=== PATIENT | female | born 1950 | race Caucasian/White ===

== ENCOUNTER 2017-02-04 11:05 | Day surgery (SDC) | payer OTHER ==
[2017-02-04] VITALS (8 sets, daily range): BP systolic 116–153; BP diastolic 65–94; PULSE 53–77; RESP 9–21; O2SAT 98–100
[~2017-02-04] VITALS: Ht 152.4 cm; Wt 58.8 kg
[~2017-02-04 11:05] MED LIST: CHOL200025 PO; Lactated Ringer's 1,000 ML IV SCH; calcium
[2017-02-04] MEDS ORDERED: Lidocaine PF 1% 30 mL Inj ONE (11:06)
[2017-02-04] MEDS ORDERED: Ondansetron 2 mg/mL 2 mL Inj ONE (11:06)
[2017-02-04] MEDS ORDERED: Propofol 10,000 mCg/mL 20 mL Inj ONE (11:06)
[2017-02-04] MEDS ORDERED: fentaNYL-PF 50 mCg/mL 2 mL Inj ONE (11:06)
[2017-02-04] MEDS ORDERED: Dexamethasone 4 mg/mL Inj ONE (11:06)
--- NOTE | 2017-02-04 11:25 | PCM.HPANE ---
Patient Data Date of Service: Feb 04, 2017 Surgeon Admitting Provider: Attending Provider:Dominick Mirza MD Primary Care Physician:Niurka Burger PA-C Other Provider:Funmi Hoskins Anesthesia Reason for Visit History Of Rectal Cancer, Right Arm Cyst Ht/WT & BMI Height (Feet): 4 Height (Inches): 11 Weight (Kilograms): 58.96 Body Mass Index 26.00 Allergies Coded Allergies: No Known Allergies (Unverified , 05/12/16) Past Anesthesia History Anesthesia History: Denies:: Abnormal Airway, Anesthesia Reactions, Difficult Intubation, Fam Anesthesia Reaction, Fam Malignant Hypertherm, Malignant Hyperthermia Diabetes History Hx Diabetes?: No MRSA MRSA: No Medications Hypertension Medication: No Home Meds Incl Beta Bhavya: No Reported Medications [calcium] No Conflict [id number] Mg DAILY 02/03/17 Cholecalciferol (Vitamin D3) (Vitamin D3)2,000 Unit Tablet2,000 Unit PO DAILY 02/03/17 Discontinued Reported Medications Cholecalciferol (Vitamin D3) (Vitamin D3)2,000 Unit Tablet2,000 Unit PO DAILY 07/20/16 [Calcium] No Conflict [id number] Mg PO DAILY 07/20/16 History History of ENT Problems?: Yes HEENT History: Positive for:: Cataracts (starting- not surgically treated) Denies:: Abnormal Airway Difficult Intubation Dysphagia Hearing Problem Sinus Problem TMJ Hx of Heart Problems?: No Cardiovascular History: Denies:: AICD Abdominal Aortic Aneurism Atrial Fibrillation Cardiac Surgery Chest Pain Congestive Heart Failure Edema Heart Murmur Hypertension Irregular Heartbeat Pacemaker Rheumatic Fever Thrombophlebitis Hx of Respiratory Problem?: No Respiratory History: Denies:: Asthma COPD Emphysema Oxygen Administration Pneumonia Tuberculosis Use of C-PAP Machine Hx Neurologic Problems?: Yes Neurological History: Denies:: Alzheimer's Disease CVA Dementia Dizziness Headaches Multiple Sclerosis Parkinson's Disease Seizures Hx of GI Problems?: Yes Gastrointestinal History: Positive for:: Rectal Bleeding (rectal mass with chemoradiation hx, biopsy current admission plan) Denies:: Cirrhosis Diverticulitis Gastroesphageal Reflux Gastrointestinal Bleeding Heartburn Hepatitis Hiatal Hernia Hx of Problems?: No Genitourinary History: Positive for:: Urinary Tract Infection (remote hx of bladder infections) Denies:: HX of Hemodialysis Kidney Stones Female Hx: Denies:: Currently (hx of tubal ligation) Endometriosis Pelvic Inflammatory Problems with Breasts? Skin History: Positive for:: History Skin Disorders? (lesion right deltoid, current admission plan) Denies:: Pressure Ulcers Hx Musculoskeletal Problems?: Yes Musculoskeletal History: Positive for:: Back Injury (low back pain) Denies:: Degenerative Joint Joint Replacement Musculoskeletal Trauma Systemic Lupus Hx of Psycho/Social Problems?: Yes Psycho Social History: Positive for:: Anxiety Denies:: Bipolar Disorder Hx Depression Hx Surgeries?: Yes (tubal ligation, nasal ) Hx Any Other Health Problems?: Yes Other History: Positive for:: Cancer (Rectal Cancer) Hospitalization Denies:: Thyroid Disease History Blood Transfusions: Denies:: Blood Transfusions Hx Diabetes: No Hx Alcohol Use: NoHx Substance Use: No Smoking Status: Current Every Day Smoker Heavy Tobacco Smoker Have You Smoked inLast 12 mo: Yes Stop/Bang S-Snoring: Do You Snore Loudly: No T-Tired: feel tired, fatigued: No O-Obsered: Observed not breath: No P-Blood Pressure: treated: No B- Body Mass Index > 35 kg/m2: No A- Age over 50: Yes N- Neck Large Circumference: No G- Gender Male: No DARYL Total Score: 1 DARYL Risk Assessment: Low Risk, <3 Yes Risk Assessment Category Category 1A: Patient has history of documented sleep apnea, and HAS NOT received any narcotic, sedative or anesthesia administration during this stay. Category 1B: Patient has history of documented sleep apnea, and HAS received any narcotic , sedative or anesthesia administration during this stay Category 2: Patient has SUSPECTED Obstructive Sleep Apnea, and HAS received any narcotic , sedative or anesthesia administration during this stay. Category 3: Patient has SUSPECTED Obstructive Sleep Apnea and HAS NOT received narcotic, sedative or anesthesia administration during this stay. Category 4: Outpatient in Procedural Areas with known sleep apnea or who screen positive for High Risk via the STOP/BANG questionnaire. Exam Exam General Appearance: Alert, Oriented X3, Cooperative, No Acute Distress HEENT/AIRWAY: MP 2, Neck Movement (limited), Mouth Opening (3 fb), Other (tmd 3 fb) Lungs: Clear to Auscultation, Normal Air Movement Heart: Exam Unremarkable, Regular Rate/Rhythm, No Murmurs/Rubs/Gallops Plan Impression Patient chart reviewed, patient interviewed and anesthestic plan with risks, benefits, and alternatives discussed, and informed consent obtained. ASA Physical Status: ASA2 Mod Systemic Disease Anesthetic Plan: GA Bene/Risks/Altern/Consents: Yes HP Complete Prior to Induction: Yes Julio Baeza MD Feb 04, 2017 11:25
[2017-02-04] MEDS ORDERED: Lactated Ringer's 1,000 ML IV SCH (12:09)
[2017-02-04] MEDS ORDERED: Lactated Ringer's 500 ML IV PRN (12:09)
[2017-02-04] MEDS ORDERED: Atropine 0.4 mg/mL Inj IVPUSH PRN (12:10)
[2017-02-04] MEDS ORDERED: HYDROmorphone 1 mg/mL Inj IVPUSH PRN (12:10)
[2017-02-04] MEDS ORDERED: fentaNYL-PF 50 mCg/mL 2 mL Inj IVPUSH PRN (12:10)
[2017-02-04] MEDS ORDERED: hydrALAZINE 20 mg/mL Inj IVPUSH PRN (12:10)
[2017-02-04] MEDS ORDERED: Ondansetron 2 mg/mL 2 mL Inj IVPUSH PRN (12:10)
[2017-02-04] MEDS ORDERED: EPHEDrine Sulfate 50 mg/mL Inj IM PRN (12:10)
[2017-02-04] MEDS ORDERED: EPHEDrine Sulfate 50 mg/mL Inj IVPUSH PRN (12:10)
[2017-02-04] MEDS ORDERED: Phenylephrine 10,000 mCg/mL Inj IVPUSH PRN (12:10)
[2017-02-04] MEDS ORDERED: Labetalol 5 mg/mL 4 mL Inj IV PRN (12:10)
[2017-02-04] MEDS ORDERED: Bupivacaine-MPF 0.25%/EPI 30 mL Inj INJ ONE (12:15)
[2017-02-04] MEDS ORDERED: oxyCODONE-Acetamin 5-325 mg Tablet PO PRN (12:35)
--- NOTE | 2017-02-04 13:36 | PCM.ANEP1 ---
Post Anesthesia Phase 1 PACU Phase 1 Assessment Date of Service: Feb 04, 2017 Vital Signs Vital Signs Date Time Temp Pulse Resp B/P Pulse Ox O2 Delivery O2 Flow Rate FiO2 02/04/17 13:31 56 14 124/65 98 Room Air 02/04/17 13:10 53 11 126/66 98 Room Air 02/04/17 13:00 36.2 53 12 122/67 100 Nasal Cannula 3 02/04/17 12:55 53 10 116/69 100 Nasal Cannula 3 02/04/17 12:50 67 9 128/94 100 Nasal Cannula 3 02/04/17 12:45 61 10 124/67 99 Nasal Cannula 3 02/04/17 12:40 36.4 77 21 124/71 98 Nasal Cannula 3 02/04/17 11:23 36.2 67 16 153/90 100 Room Air Anesthetic Administered: GA Level of Alertness: Awake, talking CALLAHAN's with Equal Strength: Yes Pain: No Nausea or Vomiting: No Oxygen Delivery: Room Air Lungs: Clear to Auscultation, Normal Air Movement Dermatome Level: Full Sensation Julio Baeza MD Feb 04, 2017 13:36
--- NOTE | 2017-02-04 13:58 | PCM.ANEP2 ---
Post Anesthesia Evaluation ASA/CMS Post Anesthesia Date of Service: Feb 04, 2017 VS in Patient's Normal Range?: Yes Resp Stable; Airway Patent?: Yes CV Function & Hydration Stable: Yes Mental Status Recovered?: Yes Pain control Satisfactory?: Yes N/V Control Satisfactory?: Yes Julio Baeza MD Feb 04, 2017 13:58
--- NOTE | 2017-02-05 01:22 | OP ---
[address] [address] OPERATIVE REPORT PATIENT: BEN SHEN : 1950 MR#: [id number] ADMIT: 02/04/2017 JOB ID: [id number] DATE OF SURGERY: 02/04/2017 ANESTHESIA: General. PREOPERATIVE DIAGNOSIS(ES): 1. History of anal cancer. 2. Right arm nodule. POSTOPERATIVE DIAGNOSIS(ES): 1. History of anal cancer. 2. Right arm nodule. OPERATIVE PROCEDURES: 1. Exam under anesthesia with anal biopsy. 2. Excision of right arm subcutaneous mass. SURGEON: Dominick Mirza MD. CARDIOVASCULAR SPECIALIST: Cornel Lantigua PA-C (the esol teacher assistant was required for the safe and timely completion of the case). COMPLICATIONS: None. ESTIMATED BLOOD LOSS: Minimal. CONDITION: Satisfactory. SPECIMEN: 1. Right arm nodule. 2. Right anal biopsy. FINDINGS: An approximately 1.5 cm right shoulder subcutaneous mass consistent either with open comedone or sebaceous cyst was excised. I also performed a biopsy of the area of firmness on the right lateral anal wall approximately 1.5-2 cm in size proximal from the anal verge. 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 She recently returned for surveillance exam. I noted a new area of firmness with some ulceration in the area of the cancer. I had not noticed it on previous exam. We discussed observation versus biopsy and she elected to undergo biopsy. She also had a right shoulder lump that had chronically been bothering her and requested that be removed at the same time. OPERATIVE TECHNIQUE: The patient was taken into the operating room and placed in the supine position. General anesthesia was administered. She was then placed in lithotomy. The perineum and anus were prepped and draped, as well as the right deltoid region. A procedure pause was performed. I began with the right deltoid region. I made elliptical incision around the nodule and completely excised it. Skin was closed with 3-0 Vicryl deep dermal, followed by running 4-0 Monocryl. Attention was turned to the anal canal. Digital rectal exam was performed. I could feel the area of firmness. I then inserted the speculum and inspected it. The area of ulceration did not appear as impressive as in the clinic and was less concerning. However, I elected to perform a biopsy. I placed a single 3-0 Vicryl suture in the area of concern so I could elevate that tissue. I then excised a small block of tissue using a scalpel. Hemostasis was achieved with cautery. Local anesthetic was injected. The case was then concluded.
--- NOTE | 2017-02-08 13:08 | PATH ---
SURGICAL PATHOLOGY Attending Physician:Dominick Mirza MD CASE STATUS: Signed Out PATIENT NAME: BEN SHEN PID: [id number] : 1950 DATE COLLECTED:02/04/2017 20:40 SPECIMEN: 1: Skin, biopsy 2: Anus, Biopsy CLINICAL HISTORY: HISTORY ANAL CANCER, RIGHT ARM NODULE 1). RIGHT SHOULDER NODULE 2). RIGHT ANAL WALL BIOPSY FINAL DIAGNOSIS: 1. Skin From Right Shoulder Area: Epidermal cyst, negative for atypia. 2. Right Anal Wall Biopsy: Smooth muscle tissue with fibrous scarring, chronic inflammation including scattered small foreign body granulomas. Negative for malignancy and significant atypia. ICD10 L72.0 GROSS DESCRIPTION: The specimens are received in formalin, labeled with the patient's name, and sublabeled as the following: (1) right shoulder nodule; (2) right anal wall Bx. (1) The specimen consists of an unoriented ellipse of skin with subcutaneous tissue (1.7 x 1.1 x 0.9 cm). The skin is garcia and contains a pale white opened ulcer (0.1 cm) located 0.2 cm from the closest peripheral resection margin. The subcutaneous tissue is cystic (1.2 x 0.9 x 0.7 cm) and contains solid brown rubbery waxy material, which coincides with the overlying ulcer. Inked code: black-resection margin. Section code: (1A) ellipse of skin, 3 sections, advertising sales representative. (2) The specimen consists of a garcia-pink rubbery piece of glistening mucosa (0.7 x 0.5 x 0.5 cm). Ink code: black-resection margin. Section code: (2A) tissue, trisected. Specimen is entirely submitted. 02/05/17 ICD-9 CODES: CPT CODES: 1: 67120 2: 52441 Electronically Signed Out Levy Fonseca MD [facility] [address], [place] [address] Technical component performed at [facility], [facility] [address], [place], [address]
== END 2017-02-04 23:59 | disposition home or self-care (01) ==
LOC: SAS 11:05
PROVIDERS: ATTEND General Practice
DX: L72.0 Epidermal cyst (principal); R22.31 Localized swelling, mass and lump, right upper limb; M54.5 Low back pain; F41.9 Anxiety disorder, unspecified; F17.210 Nicotine dependence, cigarettes, uncomplicated; Z87.440 Personal history of urinary (tract) infections; Z85.048 Personal history of other malignant neoplasm of rectum, rectosigmoid junction, and anus; Z92.3 Personal history of irradiation; Z92.21 Personal history of antineoplastic chemotherapy
CPT/HCPCS: 11402; 45990; J1100; J2405; J3010; J7120